=== PATIENT | male | born 1980 | race Caucasian/White ===

== ENCOUNTER 2020-06-06 08:47 | Day surgery (SDC) | payer BC ==
--- NOTE | 2020-06-06 07:53 | HP ---
DATE OF SURGERY: 06/06/2020 HISTORY OF PRESENT ILLNESS: The patient is a 39 year old with who has been on proton pump inhibitor for 20 years. Occasional heartburn. No prior endoscopy. Family history notable for uncle with esophageal cancer. The patient is in need of upper endoscopy. PAST MEDICAL HISTORY: Gout, hypertension, reflux. PAST SURGICAL HISTORY: Tonsillectomy in the past. MEDICATIONS: Omeprazole, allopurinol, Irbesartan, One A Day Men's Multivitamins. ALLERGIES: CEFACLOR. FAMILY HISTORY: Lung cancer, diabetes as well as uncle from esophageal cancer. SOCIAL HISTORY: Denies smoking, reports rare alcohol use. REVIEW OF SYSTEMS: Fourteen systems reviewed. No chest pain or palpitations. Other systems negative or noncontributory as above and per preadmission questionnaire. PHYSICAL EXAMINATION: GENERAL: No acute distress. HEENT: Sclerae nonicteric. NECK: No JVD. CHEST: Clear to auscultation. CVS: Regular rate and rhythm. ABDOMEN: Soft, nondistended. EXTREMITIES: No significant edema. NEURO: Alert, oriented, moving extremities symmetrically. No gross motor deficits noted. PSYCH: Appropriate mood and affect. IMPRESSION: Persistent reflux, family history of esophageal cancer. The patient is in need of upper endoscopy possible biopsy. Risks and benefits explained in detail including but not limited to bleeding or infection, risk of bowel injury or perforation possibly requiring open procedure, risk of missed or nondiagnosis or incomplete exam possibly requiring barium swallow, other studies or procedures. General risk of anesthesia or sedation, but not limited to, he understands and agrees to the planned procedure, will proceed with EGD possible biopsy as an outpatient.
[2020-06-06] MEDS ORDERED: Lactated Ringers 1,000 ML IV SCH (09:00)
[2020-06-06] MEDS ORDERED: Lactated Ringers 1,000 ML IV ONE (09:17)
[2020-06-06] MEDS ORDERED: DIPRIVAN 200 MG/20 ML IV ONE ×2 (10:35→10:49)
[2020-06-06] MEDS ORDERED: Versed 2 MG/2 ML Injection ONE (10:35)
[2020-06-06 11:25] VITALS: O2SAT 96
[2020-06-06 11:45] VITALS: BP 124/78; PULSE 78
--- NOTE | 2020-06-07 08:22 | OP ---
SURGERY DATE/TIME: 06/06/2020 1037 PREOPERATIVE DIAGNOSIS: Increased reflux, family history of esophageal cancer. POSTOPERATIVE DIAGNOSES: 1) Mild gastritis. 2) Short segment distal gastroesophagitis. 3) Small gastric polyp. PROCEDURES: 1) EGD with cold biopsy of small bowell. 2) Cold biopsy of antrum to evaluate for Helicobacter pylori. 3) Cold biopsy distal esophagus and gastroesophageal junction to evaluate for distal gastroesophagitis. SURGEON: Dr. Johnson Aguilera. ANESTHESIA: MAC. ESTIMATED BLOOD LOSS: Minimal. INDICATIONS: As noted above. Risks and benefits explained in detail and not limited to and consent obtained. DESCRIPTION OF PROCEDURE AND FINDINGS: The patient is taken to the endoscopy room. MAC anesthesia introduced. After official time out and no disagreement with planned procedure, a bite block positioned. Video gastroscope easily passed down the esophagus through the patent pylorus to the junction of the second and third portion of the duodenum. Given her symptom complaints, cold biopsy taken in the small bowel to evaluate for celiac sprue. Good hemostasis noted. The scope pulled back into the stomach. He had some minimal to mild chronic gastritis. Cold biopsy taken to evaluate for Helicobacter pylori. Good hemostasis noted. On retroflex no signs of any significant hiatal hernia. Gastroesophageal junction snug against the scope. He did have a little, small gastric polyp that was removed. Good hemostasis noted. The scope pulled back. The gastroesophageal junction about 42 cm. There was a just a short segment little bit of inflammation in distal esophagus. Cold biopsy taken to evaluate for distal gastroesophagitis. Good hemostasis noted. The remainder of the esophagus grossly unremarkable. No signs of any obvious masses or mucosal lesion on withdrawal of the scope. The patient tolerated the procedure well. There were no immediate complications.
== END 2020-06-06 11:50 | disposition home or self-care (01) ==
LOC: SDC 08:47
PROVIDERS: ATTEND Surgery
DX: K29.70 Gastritis, unspecified, without bleeding (principal); K20.90 Esophagitis, unspecified without bleeding; K21.9 Gastro-esophageal reflux disease without esophagitis; K31.7 Polyp of stomach and duodenum; Z80.0 Family history of malignant neoplasm of digestive organs
CPT/HCPCS: J2250; J2704